=== PATIENT | male | born 1985 | race Two or more races ===

== ENCOUNTER 2020-10-05 01:03 | Emergency (ER) | payer SELFPAY ==
[~2020-10-05] VITALS: Ht 190.5 cm; Wt 91.0 kg
[2020-10-05] MEDS ORDERED: ACETAMINOPHEN WITH CODEINE 300/30MG TABLET PO ONE (02:00)
[2020-10-05 02:12] VITALS: BP 148/98
== END 2020-10-05 03:12 | disposition home or self-care (01) ==
LOC: ER 01:03
DX: K08.89 Other specified disorders of teeth and supporting structures (principal)
CPT/HCPCS: 99283